=== PATIENT | male | born 1935 | race Caucasian/White ===

== ENCOUNTER 2019-04-07 20:59 | Inpatient (IN) | payer MEDICARE, OTHER ==
[2019-04-07] MEDS ORDERED: Sodium Chloride 0.9% 10 ML Syringe FLUSH PRN (21:03)
[2019-04-07] MEDS ORDERED: Sodium Chloride 0.9% 2.5 ML Syringe FLUSH PRN (21:03)
--- NOTE | 2019-04-07 21:21 | EDM.PDOC ---
ED HPI GENERAL MEDICAL PROBLEM - General Stated Complaint: PT CAN NOT TALK Time Seen by Provider: 04/07/19 21:01 - History of Present Illness INITIAL COMMENTS - FREE TEXT/NARRATIVE: HISTORY AND PHYSICAL: History of present illness: Patient is an 83-year-old male with a history of hypertension insulin requiring diabetes pulmonary issues for which he uses inhalers hypercholesterolemia dementia and a stroke affecting his right side one year ago who presents with with over 24 hours of increased confusion and generalized weakness and speech changes one hour ago. The says that since his stroke a year ago he has had confusion and weakness but she said that she thought it was worse last night starting at 6 PM. He was able to do his ADLs and had no complaints of headache chest pain fevers chills shortness of breath abdominal pain nausea or vomiting and he ate normally today. She says that approximately one hour ago she says that she could not understand what he was saying and he seemed even more confused. The patient has not had any falls recently and did not complain of any extremity pain. says that she did not notice any new focal weakness. As a result of the stroke 1 year ago says that he has had persistent right leg weakness more than other parts of his body along with the confusion. Patient follows with a provider in [place] and is currently on Coumadin therapy on a daily basis. Here in the ED when I ask him questions he is denying that he is having any pain and he is unsure of why he was brought here. Review of systems: As per history of present illness and below otherwise all systems reviewed and negative. Past medical history: As per history of present illness and as reviewed below otherwise noncontributory. Surgical history: As per history of present illness and as reviewed below otherwise noncontributory. Social history: No reported history of drug or alcohol abuse. Family history: As per history of present illness and as reviewed below otherwise noncontributory. Physical exam: General: Well-developed well-nourished thin man who is nontoxic and moving all extremities. He can adjust himself in the bed and sit up without assistance. Vital signs are noted by me HEENT: Atraumatic, normocephalic, pupils reactive, negative for conjunctival pallor or scleral icterus, mucous membranes moist, throat clear, neck supple, nontender, trachea midline. Lungs: Clear to auscultation but very diminished effort and poor effort on the patient's part and following my directions, there is no work of breathing wheezing or stridor, breath sounds equal bilaterally, chest nontender. Heart: S1S2, regular rate but irregular beats correlating with ectopy on the monitor are appreciated on my evaluation, there is an appreciable systolic ejection murmur at the left sternal border but no evidence of JVD Abdomen: Soft, nondistended, nontender. Negative for masses or hepatosplenomegaly. Negative for costovertebral tenderness. Pelvis: Stable nontender. Genitourinary: Deferred. Rectal: Deferred. Extremities: Atraumatic, negative for cords or calf pain. Neurovascular unremarkable. There is no pedal edema and patient is moving all extremities on command and spontaneously Neuro: Awake, alert, patient is oriented to his but not to place or time and is not answering those questions appropriately for me. He seems very flustered and confused about being here. He clearly exhibits anxiety and stress with questions and has difficulty focusing. He is moving all extremities and has strong upper extremity motor and grasps 5/5 but will not follow commands with lower extremities very well. When you initiate the movement the patient has 4/5 strength bilaterally in his legs and sensation is grossly intact. There is no facial droop on my evaluation and Cranial nerves II through XII unremarkable. Patient needed assistance to a wheelchair and into bed but says this is not new or different for him since last evening.. Exam nonfocal on my evaluation. He is slight increased tone in the lower extremities but patient does have good range of motion. Speech is not slurred or garbled but seemed thickened to me and slightly difficult to understand but he can answer questions. He seems more confused along with the mild dysarthria on my exam and has difficulty focusing on my questions and exam Diagnostics: CT scan of the head EKG CBC CMP troponin INR Accu-Chek TSH UA with reflex chest x-ray Therapeutics: IV O2 monitor aspirin Case was called as a stroke code and as a last known well time was 6 PM per the last evening and he is on Coumadin therapy I do not feel that he is a candidate for TPA. Admittedly his speech changes started 1 hour prior to coming here but seemed to be improving since arrival and again he is on Coumadin therapy After returning from CAT scan patient is speaking more clearly with only slight thickening does have delay and difficulty getting the words out and his speech does not appear slurred to me and says that this is improving. Now that he is less anxious and calm her he is able to focus more on questions and commands NIHSS=3 According to the his initial stroke 1 year ago occurred in [place] and she is unsure if the patient has had any follow-up CT scans at [facility] in [place] where he follows for regular care. I did briefly contact Dr. Darden in the ER at [facility] and he quickly looked in their computer and was unable to find any old head CTs for comparison. On reevaluation the patient has motor 5/5 throughout and has no drift of any of the extremities and he seems to be mentating well but he is having some dysarthria. 2155: Case was discussed with the neurologist at [facility] in [place], Dr. Booth. He said that at this point the patient's age and Coumadin use will preclude TPA and he agrees with my care plan. He suggested getting an MRI/MRA of the head and neck which we are unable to do but he says that he does not feel strongly that the patient needs to be transferred for that testing and light of the CT scan not correlating with the patient's dysarthria. He asked me to offer the patient CTA of the head and neck which I can perform here cautioning the and the patient that his kidney function is low with a GFR in the 30s. is also aware that if he goes for the MRI/MRA he will also receive contrast at [facility] but they do have nephrology there to address the kidney function. I have also offered the no more imaging intervention and just monitoring his symptoms and proceeding with more conservative nonaggressive management. She and patient are having a dialogue about their choices. Patient is alert he stated he would prefer to go home and not be admitted at either location. 5: Case was discussed with Dr. Rodriguez and he is aware of my lengthy discussion with the patient and and that their choice is to not he transferred to [facility] and to not have the CTA of the head and neck performed due to his low GFR. would like to see how the patient evolves and be more conservative and actually does not want transfer and would like to hold off to doing any testing tonight. She is aware that we can do the MRI and potentially the MRA on Tuesday here and if the patient continues to improve that may even not have to be performed pending his hospital course. Patient again says that he would prefer to go home but we will admit here to follow his symptoms and Dr. Rodriguez is agreeable. Impression: New dysarthria history of prior stroke, dementia; abnormal CT Head without correlation to symptoms; Coumadin therapy History of diabetes hypertension Definitive disposition and diagnosis as appropriate pending reevaluation and review of above. - Related Data Allergies Allergy/AdvReac Type Severity Reaction Status Date / Time No Known Allergies Allergy Verified 04/07/19 21:20 Home Meds: Home Meds Albuterol Sulfate [Proair Hfa] 1 puff INH ASDIRECTED PRN 04/07/19 [History] Albuterol/Ipratropium [DuoNeb 3.0-0.5 MG/3 ML] 1 puff INH ASDIRECTED PRN [History] Ascorbic Acid [Vitamin C] 0 mg PO DAILY 04/07/19 [History] Aspirin 1 tab PO DAILY 04/07/19 [History] Calcium Carbonate 2 tab PO DAILY 04/07/19 [History] Cholecalciferol (Vitamin D3) [Vitamin D3] 1 cap PO DAILY 04/07/19 [History] Escitalopram [Lexapro] 1 tab PO BEDTIME 04/07/19 [History] Furosemide [Lasix] 1 tab PO DAILY 04/07/19 [History] Insulin Isophane NPH, Human [NovoLIN N] 8 units SQ BID 04/07/19 [History] Lactobacillus Acidophilus [Acidophilus Probiotic] 0 mg PO DAILY 04/07/19 [ History] Lisinopril 1 tab PO DAILY 04/07/19 [History] Memantine HCl/Donepezil HCl [Namzaric 28 mg-10 mg Capsule] 1 tab PO DAILY [History] Metoprolol Succinate [Toprol XL] 1 tab PO DAILY 04/07/19 [History] Multivit-Min/FA/Lycopen/Lutein [Centrum Silver Men Tablet] 1 tab PO DAILY [History] Warfarin [Coumadin] 1 tab PO DAILY 04/07/19 [History] amLODIPine [Norvasc] 1 tab PO DAILY 04/07/19 [History] atorvaSTATin Calcium [Atorvastatin Calcium] 1 tab PO DAILY 04/07/19 [History] ED ROS GENERAL - Review of Systems Review Of Systems: ROS reveals no pertinent complaints other than HPI. ED EXAM, GENERAL - Physical Exam Exam: See Below (See dictation) Course - Vital Signs Last Recorded V/S: Last Vital Signs Temp 36.2 C 04/07/19 20:59 Pulse 66 04/07/19 22:00 Resp 17 04/07/19 22:00 BP 165/75 H 04/07/19 22:00 Pulse Ox 96 04/07/19 22:00 - Orders/Labs/Meds Orders: Active Orders 24 hr Category Date Time Status Blood Glucose Check, Bedside [RC] ONETIME Care 04/07/19 21:03 Active Cardiac Monitoring [RC] . DIRECTED Care 04/07/19 21:03 Active EKG Documentation Completion [RC] STAT Care 04/07/19 21:03 Active Oxygen Therapy, ED [RC] ASDIRECTED Care 04/07/19 21:03 Active Pulse Oximetry [RC] ASDIRECTED Care 04/07/19 21:03 Active UA RFX SUNDAR AND CULT IF INDIC [URIN] Stat Lab 04/07/19 21:03 Ordered Sodium Chloride 0.9% [Saline Flush] Med 04/07/19 21:03 Active 10 ml FLUSH ASDIRECTED PRN Sodium Chloride 0.9% [Saline Flush] Med 04/07/19 21:03 Active 2.5 ml FLUSH ASDIRECTED PRN Saline Lock Insert [OM.PC] Stat Oth 04/07/19 21:03 Ordered Medication Orders Sodium Chloride (Saline Flush) 10 ml FLUSH ASDIRECTED PRN PRN Reason: Keep Vein Open Sodium Chloride (Saline Flush) 2.5 ml FLUSH ASDIRECTED PRN PRN Reason: Keep Vein Open Labs: Laboratory Tests 04/07/19 04/07/19 04/07/19 Range/Units 21:35 21:35 21:35 WBC 9.53 (4.0-11.0) K/uL RBC 4.20 L (4.50-5.90) M/uL Hgb 12.1 L (13.0-17.0) g/dL Hct 37.4 L (38.0-50.0) % MCV 89.0 (80.0-98.0) fL MCH 28.8 (27.0-32.0) pg MCHC 32.4 (31.0-37.0) g/dL RDW Std Deviation 47.0 (28.0-62.0) fl RDW Coeff of Marge 15 (11.0-15.0) % Plt Count 183 (150-400) K/uL MPV 11.80 (7.40-12.00) fL Neut % (Auto) 72.5 (48.0-80.0) % Lymph % (Auto) 14.5 L (16.0-40.0) % [place] % (Auto) 12.0 (0.0-15.0) % Eos % (Auto) 0.6 (0.0-7.0) % Baso % (Auto) 0.4 (0.0-1.5) % Neut # (Auto) 6.9 H (1.4-5.7) K/uL Lymph # (Auto) 1.4 (0.6-2.4) K/uL [place] # (Auto) 1.1 H (0.0-0.8) K/uL Eos # (Auto) 0.1 (0.0-0.7) K/uL Baso # (Auto) 0.0 (0.0-0.1) K/uL Nucleated RBC % 0.0 /100WBC Nucleated RBCs # 0 K/uL INR 2.03 Sodium 142 (136-148) mmol/L Potassium 4.3 (3.5-5.1) mmol/L Chloride 107 (98-107) mmol/L Carbon Dioxide 28.7 (21.0-32.0) mmol/L BUN 29 H (7.0-18.0) mg/dL Creatinine 1.7 H (0.8-1.3) mg/dL Est Cr Clr Drug Dosing TNP Estimated GFR (MDRD) 38.8 ml/min Glucose 112 H (74-106) mg/dL Calcium 9.1 (8.5-10.1) mg/dL Total Bilirubin 1.0 (0.2-1.0) mg/dL AST 19 (15-37) IU/L ALT 15 (14-63) IU/L Alkaline Phosphatase 58 (46-116) U/L Troponin I < 0.050 (0.000-0.056) ng/mL Total Protein 6.1 L (6.4-8.2) g/dL Albumin 2.8 L (3.4-5.0) g/dL Globulin 3.3 (2.6-4.0) g/dL Albumin/Globulin Ratio 0.9 (0.9-1.6) TSH 3rd Generation 3.60 (0.36-3.74) uIU/mL Meds: Medications Generic Name Dose Route Start Last Admin Trade Name Freq PRN Reason Stop Dose Admin Sodium Chloride 10 ml 04/07/19 21:03 Saline Flush FLUSH ASDIRECTED PRN Keep Vein Open Sodium Chloride 2.5 ml 04/07/19 21:03 Saline Flush FLUSH ASDIRECTED PRN Keep Vein Open Discontinued Medications Generic Name Dose Route Start Last Admin Trade Name Freq PRN Reason Stop Dose Admin Aspirin 325 mg 04/07/19 22:51 Aspirin PO 04/07/19 22:52 ONETIME ONE Departure - Departure Time of Disposition: 22:57 Disposition: Refer to Observation Condition: Good Clinical Impression: Dysarthria - Discharge Information Referrals: Efrem Evans MD [Primary Care Provider] - - My Orders Last 24 Hours: My Active Orders 04/07/19 21:03 Blood Glucose Check, Bedside [RC] ONETIME Cardiac Monitoring [RC] . DIRECTED EKG Documentation Completion [RC] STAT Oxygen Therapy, ED [RC] ASDIRECTED Pulse Oximetry [RC] ASDIRECTED UA RFX SUNDAR AND CULT IF INDIC [URIN] Stat Sodium Chloride 0.9% [Saline Flush] 10 ml FLUSH ASDIRECTED PRN Sodium Chloride 0.9% [Saline Flush] 2.5 ml FLUSH ASDIRECTED PRN Saline Lock Insert [OM.PC] Stat - Assessment/Plan Last 24 Hours: My Active Orders 04/07/19 21:03 Blood Glucose Check, Bedside [RC] ONETIME Cardiac Monitoring [RC] . DIRECTED EKG Documentation Completion [RC] STAT Oxygen Therapy, ED [RC] ASDIRECTED Pulse Oximetry [RC] ASDIRECTED UA RFX SUNDAR AND CULT IF INDIC [URIN] Stat Sodium Chloride 0.9% [Saline Flush] 10 ml FLUSH ASDIRECTED PRN Sodium Chloride 0.9% [Saline Flush] 2.5 ml FLUSH ASDIRECTED PRN Saline Lock Insert [OM.PC] Stat
--- NOTE | 2019-04-07 21:35 | CR ---
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 The heart silhouette is normal in size and morphology. Lung: Mild left basal atelectasis and small left pleural effusion noted. No pneumothorax is identified. Bone and Soft tissue: Removed, healed left-sided rib fractures seen. IMPRESSION: 1. Mild left basal atelectasis and small left pleural effusion noted. Dictated by Jair Tay MD @ 04/07/2019 9:34:31 PM Dictated by: Jair Tay MD @ 04/07/2019 21:34:35 (Electronically Signed)
--- NOTE | 2019-04-07 21:41 | CT ---
INDICATION: Confusion, dysarthria. Nonfocal exam. Previous history of a stroke 1 year ago. COMPARISON: None available. TECHNIQUE: CT examination of the head was performed with 3 mm thick axial sections without intravenous contrast. Images were obtained from the vertex of the skull through the skull base, and I examined the images with the brain and bone windows. Please note that all CT scans at this facility use dose modulation, iterative reconstruction, and/or weight-based dosing when appropriate to reduce radiation dose to as low as reasonably achievable. FINDINGS: : There is focal calcification located in the central portion of an M2 branch of the right MCA in the anterior inferior right sylvian cistern, suggesting a calcified embolus. There is no sign of increased density throughout the other portions of the right MCA. There is moderate encephalomalacia in the medial left high parietal lobe extending from the periventricular region to the cortex, consistent with an old distal left GARCY infarct. 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 There is mild hypodensity in the right posterior parietal cortex and subcortical white matter adjacent to the posterior horn of the right lateral ventricle, consistent with an old or possibly subacute distal right posterior MCA infarct. There is mild hypodensity in the high right posterior parietal subcortical white matter with a small punctate calcification adjacent to it, consistent with an old distal right posterior MCA infarct. There is moderate dilatation of the ventricles and sulci representing mom moderate, age-appropriate atrophy. The visualized portions of the orbits are normal in appearance. The visualized portions of the paranasal sinuses and mastoids are clear. The osseous structures are normal in their appearance with no sign of abnormality in the skull base or calvarium. The findings were discussed with Dr. Martínez at 21 30 hours on 04/07/2019. IMPRESSION: Punctate calcification located in the medial aspect of an M2 branch of the right MCA in the anterior sylvian cistern, worrisome for calcified thrombus. Old left high distal GRACY infarct with punctate calcification anterior to the area of encephalomalacia. Old right high posterior parietal distal MCA infarction with small calcification located adjacent to the area of encephalomalacia. Area of hypodensity in the posterior right occipital lobe adjacent to the occipital horn of the right lateral ventricle could be old or possibly subacute distal right posterior MCA infarction. Moderate, age-appropriate atrophy. Please note that all CT scans at this facility use dose modulation, iterative reconstruction, and/or weight-based dosing when appropriate to reduce radiation dose to as low as reasonably achievable. Dictated by Rudolph Rankin MD @ Apr 07 2019 9:24PM Signed by Dr. Rudolph Rankin @ Apr 07 2019 9:39PM
[2019-04-07 21:53] LABS: BLOOD UREA NITROGEN,BUN 29 mg/dL (7.0-18.0); CARBON DIOXIDE,CO2 28.7 mmol/L (21.0-32.0); CHLORIDE,CL 107 mmol/L (98-107); GLUCOSE RANDOM 112 mg/dL (74-106); POTASSIUM,K 4.3 mmol/L (3.5-5.1); SODIUM,NA 142 mmol/L (136-148)
[2019-04-07] MEDS ORDERED: Aspirin 325 MG Tab PO ONE (22:51)
[2019-04-08] MEDS ORDERED: Sodium Chloride 0.9% 2.5 ML Syringe FLUSH PRN (00:59)
[2019-04-08] MEDS: Insulin Aspart 100 Units/ML 3 ML Pen SUBCUT SCH ×3 (07:42→18:03)
[2019-04-08] MEDS ORDERED: Ondansetron 4 MG/2 ML SDV IVPUSH PRN (09:37)
[2019-04-08] MEDS ORDERED: Acetaminophen 325 MG Tab PO PRN (09:37)
[2019-04-08] MEDS ORDERED: Albuterol 8 GM Inhaler INH PRN (09:39)
--- NOTE | 2019-04-08 09:41 | PCM.HP.2 ---
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 reports that yesterday he was having trouble walking but that resolved by the afternoon. They were on their way to [facility] and he suddenly started talking gibberish so she brought him into the ER. When speaking to the patient this morning, he states "I had a strike" and he denies any pain. Otherwise, he can't tell me the specifics of what happened or participate in the interview in a meaningful way. The reports that he wasn't complaining of any chest pain, shortness of breath, belly pain, nausea, vomiting, diarrhea, fever at home. In the ER workup included labs that showed no white count, slight anemia, INR within normal limits, Electrolytes within normal limits, BUN/creatinine elevated negative troponin, and TSH within normal limits. UA showed positive ketones, protein and trace leuk esterase. Chest x-ray showed mild atelectasis and small left-sided pleural effusion. CT of the head showed punctate calcification in the medial aspect of the M2 branch of the right MCA, worrisome for calcified thrombus, old left high distal GRACY infarct with punctate calcification, old right high posterior parietal distal MCA infarct, area of hypodensity in the posterior right occipital lobe adjacent to the occipital horn of the right lateral ventricle could be old or possibly subacute distal right posterior MCA infarction as well as age-appropriate atrophy. In the ER, it was deemed that he was not a candidate for TPA due to his Coumadin therapy. ER provider did speak to the neurologist validation scientist, Dr. Booth, in [place]. Per ER note, the neurologist recommended CTA of head and neck.. It was explained to the family that a CTA may worsen the patient's kidney function and we do not have a fare register repairer here on staff. The family declined transfer to [place] at that time. When speaking to the this morning, she does not want transfer to [place], but would like an MRI done. We explained the MRI wouldn't be able to be done until tomorrow and was fine with that. - Related Data Allergies/Adverse Reactions: Allergies Allergy/AdvReac Type Severity Reaction Status Date / Time No Known Allergies Allergy Verified 04/07/19 23:35 Home Medications: Home Meds Albuterol Sulfate [Proair Hfa] 1 puff INH Q4HR PRN 04/07/19 [History] Albuterol/Ipratropium [DuoNeb 3.0-0.5 MG/3 ML] 1 puff INH ASDIRECTED PRN [History] Ascorbic Acid [Vitamin C] 0 mg PO DAILY 04/07/19 [History] Aspirin 1 tab PO DAILY 04/07/19 [History] Calcium Carbonate 2 tab PO DAILY 04/07/19 [History] Cholecalciferol (Vitamin D3) [Vitamin D3] 1 cap PO DAILY 04/07/19 [History] Escitalopram [Lexapro] 1 tab PO BEDTIME 04/07/19 [History] Furosemide [Lasix] 1 tab PO DAILY 04/07/19 [History] Insulin Isophane NPH, Human [NovoLIN N] 8 units SQ BID 04/07/19 [History] Lactobacillus Acidophilus [Acidophilus Probiotic] 1 tab PO DAILY 04/07/19 [ History] Lisinopril 1 tab PO DAILY 04/07/19 [History] Memantine HCl/Donepezil HCl [Namzaric 28 mg-10 mg Capsule] 1 tab PO DAILY [History] Metoprolol Succinate [Toprol XL] 1 tab PO DAILY 04/07/19 [History] Multivit-Min/FA/Lycopen/Lutein [Centrum Silver Men Tablet] 1 tab PO DAILY [History] Warfarin [Coumadin] 1 tab PO DAILY 04/07/19 [History] atorvaSTATin Calcium [Atorvastatin Calcium] 1 tab PO DAILY 04/07/19 [History] Past Medical History HEENT History: Reports: Hard of Hearing, Impaired Vision, Other (See Below) Other HEENT History: wears glasses Cardiovascular History: Reports: High Cholesterol, Hypertension, Other (See Below) Other Cardiovascular History: Stroke a year ago in october Respiratory History: Reports: COPD Genitourinary History: Reports: None Neurological History: Reports: CVA, Other (See Below) Other Neuro History: dementia Endocrine/Metabolic History: Reports: Diabetes, Type II - Past Surgical History Cardiovascular Surgical History: Reports: Coronary Artery Bypass, Other (See Below) Other Cardiovascular Surgeries/Procedures: Open heart surgery 10 years with 5 bypasses GI Surgical History: Reports: Colonoscopy Social & Family History - Family History Family Medical History: Noncontributory - Tobacco Use Smoking Status *Q: Current Every Day Smoker Years of Tobacco use: 35 Packs/Tins Daily: 1 Used Tobacco, but Quit: Yes Month/Year Tobacco Last Used: 1989 - Caffeine Use Caffeine Use: Reports: Coffee, Soda Caffeine Use Comment: 1 cup a day, 6 diet cokes a day - Alcohol Use Days Per Week of Alcohol Use: 7 Number of Drinks Per Day: 1 Total Drinks Per Week: 7 Date of Last Drink: 04/07/19 Time of Last Drink: 19:00 - Recreational Drug Use Recreational Drug Use: No H&P Review of Systems - Review of Systems: Review Of Systems: See Below Free Text/Narrative: Patient declines any problems but appears on confused General: Reports: No Symptoms HEENT: Reports: No Symptoms Pulmonary: Reports: No Symptoms Cardiovascular: Reports: No Symptoms Gastrointestinal: Reports: No Symptoms Genitourinary: Reports: No Symptoms Musculoskeletal: Reports: No Symptoms Skin: Reports: No Symptoms Psychiatric: Reports: No Symptoms Neurological: Reports: Confusion Hematologic/Lymphatic: Reports: No Symptoms Immunologic: Reports: No Symptoms Exam - Exam Exam: See Below - Vital Signs Vital Signs: Last Vital Signs Temp 98.5 F 04/08/19 07:42 Pulse 60 04/08/19 07:42 Resp 18 04/08/19 07:42 BP 182/75 H 04/08/19 07:42 Pulse Ox 94 L 04/08/19 07:42 Weight: 62.051 kg - Exam General: Alert. No: Oriented Lungs: Clear to Auscultation, Normal Respiratory Effort Cardiovascular: Regular Rate, Regular Rhythm GI/Abdominal Exam: Normal Bowel Sounds, Soft, Non-Tender, No Distention Extremities: No Pedal Edema Skin: Warm, Dry Neuro Extensive - Motor, Sensory, Reflexes: Other (strength 4/5 on right, 5/5 on left, follows some directions, speech difficult to understand which states is not normal ) - Patient Data Lab Results Last 24 hrs: Laboratory Results - last 24 hr 04/07/19 04/07/19 04/07/19 Range/Units 21:35 21:35 21:35 WBC 9.53 (4.0-11.0) K/uL RBC 4.20 L (4.50-5.90) M/uL Hgb 12.1 L (13.0-17.0) g/dL Hct 37.4 L (38.0-50.0) % MCV 89.0 (80.0-98.0) fL MCH 28.8 (27.0-32.0) pg MCHC 32.4 (31.0-37.0) g/dL RDW Std Deviation 47.0 (28.0-62.0) fl RDW Coeff of Marge 15 (11.0-15.0) % Plt Count 183 (150-400) K/uL MPV 11.80 (7.40-12.00) fL Neut % (Auto) 72.5 (48.0-80.0) % Lymph % (Auto) 14.5 L (16.0-40.0) % [place] % (Auto) 12.0 (0.0-15.0) % Eos % (Auto) 0.6 (0.0-7.0) % Baso % (Auto) 0.4 (0.0-1.5) % Neut # (Auto) 6.9 H (1.4-5.7) K/uL Lymph # (Auto) 1.4 (0.6-2.4) K/uL [place] # (Auto) 1.1 H (0.0-0.8) K/uL Eos # (Auto) 0.1 (0.0-0.7) K/uL Baso # (Auto) 0.0 (0.0-0.1) K/uL Nucleated RBC % 0.0 /100WBC Nucleated RBCs # 0 K/uL INR 2.03 Sodium 142 (136-148) mmol/L Potassium 4.3 (3.5-5.1) mmol/L Chloride 107 (98-107) mmol/L Carbon Dioxide 28.7 (21.0-32.0) mmol/L BUN 29 H (7.0-18.0) mg/dL Creatinine 1.7 H (0.8-1.3) mg/dL Est Cr Clr Drug Dosing TNP Estimated GFR (MDRD) 38.8 ml/min Glucose 112 H (74-106) mg/dL POC Glucose (60-110) mg/dL Calcium 9.1 (8.5-10.1) mg/dL Total Bilirubin 1.0 (0.2-1.0) mg/dL AST 19 (15-37) IU/L ALT 15 (14-63) IU/L Alkaline Phosphatase 58 (46-116) U/L Troponin I < 0.050 (0.000-0.056) ng/mL Total Protein 6.1 L (6.4-8.2) g/dL Albumin 2.8 L (3.4-5.0) g/dL Globulin 3.3 (2.6-4.0) g/dL Albumin/Globulin Ratio 0.9 (0.9-1.6) TSH 3rd Generation 3.60 (0.36-3.74) uIU/mL Urine Color Urine Appearance Urine pH (5.0-8.0) Ur Specific [place] (1.001-1.035) Urine Protein (NEGATIVE) mg/dL Urine Glucose (UA) (NEGATIVE) mg/dL Urine Ketones (NEGATIVE) mg/dL Urine Occult Blood (NEGATIVE) Urine Nitrite (NEGATIVE) Urine Bilirubin (NEGATIVE) Urine Urobilinogen (<2.0) EU/dL Ur Leukocyte Esterase (NEGATIVE) Urine RBC (0-2/HPF) Urine WBC (0-5/HPF) Ur Epithelial Cells (NONE-FEW) Amorphous Sediment (NEGATIVE) Urine Bacteria (NEGATIVE) 04/07/19 04/08/19 Range/Units 22:50 06:23 WBC (4.0-11.0) K/uL RBC (4.50-5.90) M/uL Hgb (13.0-17.0) g/dL Hct (38.0-50.0) % MCV (80.0-98.0) fL MCH (27.0-32.0) pg MCHC (31.0-37.0) g/dL RDW Std Deviation (28.0-62.0) fl RDW Coeff of Marge (11.0-15.0) % Plt Count (150-400) K/uL MPV (7.40-12.00) fL Neut % (Auto) (48.0-80.0) % Lymph % (Auto) (16.0-40.0) % [place] % (Auto) (0.0-15.0) % Eos % (Auto) (0.0-7.0) % Baso % (Auto) (0.0-1.5) % Neut # (Auto) (1.4-5.7) K/uL Lymph # (Auto) (0.6-2.4) K/uL [place] # (Auto) (0.0-0.8) K/uL Eos # (Auto) (0.0-0.7) K/uL Baso # (Auto) (0.0-0.1) K/uL Nucleated RBC % /100WBC Nucleated RBCs # K/uL INR Sodium (136-148) mmol/L Potassium (3.5-5.1) mmol/L Chloride (98-107) mmol/L Carbon Dioxide (21.0-32.0) mmol/L BUN (7.0-18.0) mg/dL Creatinine (0.8-1.3) mg/dL Est Cr Clr Drug Dosing Estimated GFR (MDRD) ml/min Glucose (74-106) mg/dL POC Glucose 126 H (60-110) mg/dL Calcium (8.5-10.1) mg/dL Total Bilirubin (0.2-1.0) mg/dL AST (15-37) IU/L ALT (14-63) IU/L Alkaline Phosphatase (46-116) U/L Troponin I (0.000-0.056) ng/mL Total Protein (6.4-8.2) g/dL Albumin (3.4-5.0) g/dL Globulin (2.6-4.0) g/dL Albumin/Globulin Ratio (0.9-1.6) TSH 3rd Generation (0.36-3.74) uIU/mL Urine Color YELLOW Urine Appearance SLT CLOUDY Urine pH 6.0 (5.0-8.0) Ur Specific [place] 1.025 (1.001-1.035) Urine Protein 100 H (NEGATIVE) mg/dL Urine Glucose (UA) NEGATIVE (NEGATIVE) mg/dL Urine Ketones 15 H (NEGATIVE) mg/dL Urine Occult Blood NEGATIVE (NEGATIVE) Urine Nitrite NEGATIVE (NEGATIVE) Urine Bilirubin NEGATIVE (NEGATIVE) Urine Urobilinogen 0.2 (<2.0) EU/dL Ur Leukocyte Esterase TRACE H (NEGATIVE) Urine RBC 0-2 (0-2/HPF) Urine WBC 1-3 (0-5/HPF) Ur Epithelial Cells OCCASIONAL (NONE-FEW) Amorphous Sediment LIGHT (NEGATIVE) Urine Bacteria RARE (NEGATIVE) Result Diagrams: 04/07/19 21:35 04/07/19 21:35 Problem List Initiated/Reviewed/Updated: Yes Orders Last 24hrs: Active Orders 24 hr Category Date Time Status Patient Status [ADT] Stat ADT 04/07/19 22:58 Active Blood Glucose Check, Bedside [RC] TIDAC Care 04/08/19 06:00 Active Cardiac Monitoring [RC] Q8H Care 04/07/19 21:03 Active EKG Documentation Completion [RC] STAT Care 04/07/19 21:03 Active Intake and Output [RC] ASDIRECTED Care 04/08/19 09:37 Ordered Neuro Check [RC] Q2HR Care 04/08/19 02:00 Active Pulse Oximetry [RC] ASDIRECTED Care 04/07/19 21:03 Active Telemetry Monitoring [Cardiac Monitoring] [RC] . Care 04/07/19 23:20 Active DIRECTED Vital Signs [RC] PER UNIT ROUTINE Care 04/08/19 09:37 Ordered OT Evaluation and Treatment [CONS] Routine Cons 04/08/19 09:37 Ordered PT Evaluation and Treatment [CONS] Routine Cons 04/08/19 09:37 Ordered OPERATIONS [employer] Evaluation and Treatment [CONS] Routine Cons 04/08/19 09:37 Ordered ADA Diabetic [[place] [employer] Diet] [DIET Diet 04/08/19 Breakfast Active ] CULTURE URINE [RM] Stat Lab 04/07/19 22:50 Received Acetaminophen [Tylenol] Med 04/08/19 09:37 Ordered 650 mg PO Q4H PRN Albuterol [Proventil HFA] Med 04/08/19 09:39 Ordered 1 puff INH Q4HR PRN Aspirin Med 04/08/19 09:45 Ordered 81 mg PO DAILY Escitalopram [Lexapro] Med 04/08/19 21:00 Ordered 10 mg PO BEDTIME Insulin Aspart [NovoLOG] Med 04/08/19 07:30 Active See Protocol SUBCUT TIDAC Lisinopril Med 04/08/19 09:45 Ordered 1 tab PO DAILY Ondansetron [Zofran] Med 04/08/19 09:37 Ordered 4 mg IVPUSH Q4H PRN Sodium Chloride 0.9% @ 100 MLS/HR(1,000ml) Med 04/08/19 09:45 Ordered Sodium Chloride 0.9% [Normal Saline] 1,000 ml IV ASDIRECTED Sodium Chloride 0.9% [Saline Flush] Med 04/07/19 21:03 Active 10 ml FLUSH ASDIRECTED PRN Sodium Chloride 0.9% [Saline Flush] Med 04/07/19 21:03 Active 2.5 ml FLUSH ASDIRECTED PRN Sodium Chloride 0.9% [Saline Flush] Med 04/08/19 00:59 Active 2.5 ml FLUSH ASDIRECTED PRN Warfarin [Coumadin] Med 04/08/19 09:45 Ordered 2.5 mg PO DAILY atorvaSTATin Calcium [Atorvastatin Calcium] Med 04/08/19 09:45 Ordered 1 tab PO DAILY Saline Lock Insert [OM.PC] Stat Oth 04/07/19 21:03 Ordered Medication Orders Acetaminophen (Tylenol) 650 mg PO Q4H PRN PRN Reason: Pain/Fever Albuterol (Proventil Hfa) gm INH Q4HR PRN PRN Reason: Dyspnea Aspirin (Aspirin) 81 mg PO DAILY [facility] Escitalopram Oxalate (Lexapro) 10 mg PO BEDTIME [facility] Sodium Chloride (Normal Saline) 1,000 mls @ 100 mls/hr IV ASDIRECTED [facility] Insulin Aspart (Novolog) 0 unit SUBCUT TIDAC [facility]; Protocol Last Admin: 04/08/19 07:42 Dose: Not Given Non-Formulary Medication (Atorvastatin Calcium [Atorvastatin Calcium]) 1 tab PO DAILY [facility] Non-Formulary Medication (Lisinopril) 1 tab PO DAILY [facility] Ondansetron HCl (Zofran) 4 mg IVPUSH Q4H PRN PRN Reason: Nausea/Vomiting Sodium Chloride (Saline Flush) 10 ml FLUSH ASDIRECTED PRN PRN Reason: Keep Vein Open Sodium Chloride (Saline Flush) 2.5 ml FLUSH ASDIRECTED PRN PRN Reason: Keep Vein Open Sodium Chloride (Saline Flush) 2.5 ml FLUSH ASDIRECTED PRN PRN Reason: IV Use Warfarin Sodium (Coumadin) 2.5 mg PO DAILY [facility] Assessment/Plan Comment:: 1. Admit to inpatient 2. Code status -DNR/DNI 3. Vitals per routine 4. I/Os per routine 5. Diet- heart healthy 6. DVT prophylaxis- on Coumadin 7. Change in speech and right sided weakness concerning for CVA-will order PT/OT /ST. Will order MRI brain for Tuesday, if improvement in kidney function could get with contrast as well as MRA of head/neck without. Continue neuro checks. Will hold BP meds for permissive HTN. Continue Coumadin. Monitor on telemetry 8. DMII- will place on sliding scale and accuchecks 9. PMH HTN and dementia- hold BP meds for permissive HTN
[2019-04-08] MEDS: Sodium Chloride 0.9% 1,000 ML IV SCH ×2 (10:14→21:01)
[2019-04-08] MEDS: Aspirin 81 MG Tab.Chew PO SCH (10:15)
[2019-04-08] MEDS: atorvaSTATin 40 MG Tab PO SCH (10:15)
[2019-04-08] MEDS: Warfarin 2.5 MG Tab PO SCH (13:31)
[2019-04-08] MEDS ORDERED: Magnesium Sulfate/Water 4 GM in Premix Bag 1 BAG IV ONE (18:46)
[2019-04-08] MEDS: Escitalopram 10 MG Tab PO SCH (20:55)
[2019-04-09] MEDS: Sodium Chloride 0.9% 1,000 ML IV SCH (06:18)
[2019-04-09 06:43] LABS: CARBON DIOXIDE,CO2 27.8 mmol/L (21.0-32.0); POTASSIUM,K 4.3 mmol/L (3.5-5.1)
[2019-04-09] MEDS: Insulin Aspart 100 Units/ML 3 ML Pen SUBCUT SCH ×3 (07:40→18:05)
[2019-04-09] MEDS: atorvaSTATin 40 MG Tab PO SCH (08:24)
[2019-04-09] MEDS: Aspirin 81 MG Tab.Chew PO SCH (08:24)
--- NOTE | 2019-04-09 10:00 | PCM.PN ---
- General Info Date of Service: 04/09/19 - Review of Systems Systems Review Comment:: feeling better, strength improving - Patient Data Vitals - Most Recent: Last Vital Signs Temp 35.9 C 04/09/19 08:00 Pulse 58 L 04/09/19 08:00 Resp 16 04/09/19 08:00 BP 170/63 H 04/09/19 08:24 Pulse Ox 94 L 04/09/19 08:00 Weight - Most Recent: 62.051 kg I&O - Last 24 Hours: Intake & Output 04/08/19 04/09/19 04/09/19 22:59 06:59 14:59 Intake Total 1397 740 Output Total 425 350 Balance 972 390 Lab Results Last 24 Hours: Laboratory Results - last 24 hr 04/07/19 04/08/19 04/08/19 Range/Units 21:10 12:04 16:37 WBC (4.0-11.0) K/uL RBC (4.50-5.90) M/uL Hgb (13.0-17.0) g/dL Hct (38.0-50.0) % MCV (80.0-98.0) fL MCH (27.0-32.0) pg MCHC (31.0-37.0) g/dL RDW Std Deviation (28.0-62.0) fl RDW Coeff of Marge (11.0-15.0) % Plt Count (150-400) K/uL MPV (7.40-12.00) fL Neut % (Auto) (48.0-80.0) % Lymph % (Auto) (16.0-40.0) % [place] % (Auto) (0.0-15.0) % Eos % (Auto) (0.0-7.0) % Baso % (Auto) (0.0-1.5) % Neut # (Auto) (1.4-5.7) K/uL Lymph # (Auto) (0.6-2.4) K/uL [place] # (Auto) (0.0-0.8) K/uL Eos # (Auto) (0.0-0.7) K/uL Baso # (Auto) (0.0-0.1) K/uL Nucleated RBC % /100WBC Nucleated RBCs # K/uL INR Sodium (136-148) mmol/L Potassium (3.5-5.1) mmol/L Chloride (98-107) mmol/L Carbon Dioxide (21.0-32.0) mmol/L BUN (7.0-18.0) mg/dL Creatinine (0.8-1.3) mg/dL Est Cr Clr Drug Dosing mL/min Estimated GFR (MDRD) ml/min Glucose (74-106) mg/dL POC Glucose 235 H 263 H (60-110) mg/dL Calcium (8.5-10.1) mg/dL Magnesium 1.4 L (1.8-2.4) mg/dL 04/09/19 04/09/19 04/09/19 Range/Units 06:15 06:15 06:15 WBC 6.85 (4.0-11.0) K/uL RBC 4.02 L (4.50-5.90) M/uL Hgb 11.5 L (13.0-17.0) g/dL Hct 35.6 L (38.0-50.0) % MCV 88.6 (80.0-98.0) fL MCH 28.6 (27.0-32.0) pg MCHC 32.3 (31.0-37.0) g/dL RDW Std Deviation 46.4 (28.0-62.0) fl RDW Coeff of Marge 14 (11.0-15.0) % Plt Count 149 L (150-400) K/uL MPV 11.60 (7.40-12.00) fL Neut % (Auto) 64.5 (48.0-80.0) % Lymph % (Auto) 19.9 (16.0-40.0) % [place] % (Auto) 12.7 (0.0-15.0) % Eos % (Auto) 1.9 (0.0-7.0) % Baso % (Auto) 1.0 (0.0-1.5) % Neut # (Auto) 4.4 (1.4-5.7) K/uL Lymph # (Auto) 1.4 (0.6-2.4) K/uL [place] # (Auto) 0.9 H (0.0-0.8) K/uL Eos # (Auto) 0.1 (0.0-0.7) K/uL Baso # (Auto) 0.1 (0.0-0.1) K/uL Nucleated RBC % 0.0 /100WBC Nucleated RBCs # 0 K/uL INR 1.61 Sodium 141 (136-148) mmol/L Potassium 4.3 (3.5-5.1) mmol/L Chloride 107 (98-107) mmol/L Carbon Dioxide 27.8 (21.0-32.0) mmol/L BUN 25 H (7.0-18.0) mg/dL Creatinine 1.4 H (0.8-1.3) mg/dL Est Cr Clr Drug Dosing 35.70 mL/min Estimated GFR (MDRD) 48.5 ml/min Glucose 135 H (74-106) mg/dL POC Glucose (60-110) mg/dL Calcium 8.1 L (8.5-10.1) mg/dL Magnesium 1.9 (1.8-2.4) mg/dL Med Orders - Current: Current Medications Acetaminophen (Tylenol) 650 mg PO Q4H PRN PRN Reason: Pain/Fever Albuterol (Ventolin Hfa) 0 gm INH Q4H PRN PRN Reason: Dyspnea Aspirin (Aspirin) 81 mg PO DAILY [facility] Last Admin: 04/09/19 08:24 Dose: 81 mg Atorvastatin Calcium (Lipitor) 80 mg PO DAILY [facility] Last Admin: 04/09/19 08:24 Dose: 80 mg Escitalopram Oxalate (Lexapro) 10 mg PO BEDTIME [facility] Last Admin: 04/08/19 20:55 Dose: 10 mg Insulin Aspart (Novolog) 0 unit SUBCUT TIDAC [facility]; Protocol Last Admin: 04/09/19 07:40 Dose: Not Given Lisinopril (Prinivil) 20 mg PO DAILY [facility] Last Admin: 04/09/19 08:24 Dose: 20 mg Ondansetron HCl (Zofran) 4 mg IVPUSH Q4H PRN PRN Reason: Nausea/Vomiting Sodium Chloride (Saline Flush) 10 ml FLUSH ASDIRECTED PRN PRN Reason: Keep Vein Open Sodium Chloride (Saline Flush) 2.5 ml FLUSH ASDIRECTED PRN PRN Reason: Keep Vein Open Sodium Chloride (Saline Flush) 2.5 ml FLUSH ASDIRECTED PRN PRN Reason: IV Use Warfarin Sodium (Coumadin) 2.5 mg PO DAILY@1400 [facility] Last Admin: 04/08/19 13:31 Dose: 2.5 mg Discontinued Medications Aspirin (Aspirin) 325 mg PO ONETIME ONE Stop: 04/07/19 22:52 Last Admin: 04/07/19 23:02 Dose: 325 mg Sodium Chloride (Normal Saline) 1,000 mls @ 100 mls/hr IV ASDIRECTED [facility] Last Admin: 04/09/19 06:18 Dose: 100 mls/hr Magnesium Sulfate 4 gm/ Premix 100 mls @ 25 mls/hr IV ONETIME ONE Stop: 04/08/19 22:45 Last Admin: 04/08/19 18:59 Dose: 25 mls/hr - Exam General: Alert, Cooperative Lungs: Clear to Auscultation, Normal Respiratory Effort Cardiovascular: Regular Rate, Regular Rhythm Extremities: Non-Tender, No Pedal Edema Skin: Warm, Dry, Intact Neurological: No New Focal Deficit - Problem List Review Problem List Initiated/Reviewed/Updated: Yes - Plan Plan:: 88 yo male who presented with concerns fo CVA with slurred speech and right sided weakness. Patient and family declined transfer which was offered due to finding on CT scan of head. Plan is for MRI of brain. We are holding BP medication for permissive HTN. Continue Coumadin and telemetry.
[2019-04-09] MEDS: Warfarin 2.5 MG Tab PO SCH (14:07)
--- NOTE | 2019-04-09 15:08 | MR ---
INDICATION: 83-year-old male. Evaluate for CVA. TECHNIQUE: Sagittal T1 axial FLAIR T2 and diffusion weighted images of the brain. [id number] magnetic resonance atrophy of the [place] arteries. [id number] magnetic resonance angiography of the carotid artery was not able history. COMPARISON: CT brain on 04/07/2019. FINDINGS: MRI brain: Motion artifact degrades quality of the study. No areas of diffusion restriction to suggest acute infarction are seen at this time. Focal areas of encephalomalacia due to chronic infarction are noted within the parasagittal left anterior parietal posterior frontal lobes (distal left anterior cerebral artery territory) cyst. Small chronic cortical based infarction is in the bilateral frontal lobe particular region and in the deep right parietal lobe white matter and another in the right occipital lobe. These findings correspond to abnormalities described on recent CT scan and are stable. No evidence of intracranial hemorrhage. No mass effect or midline shift. Orbits sella ago the wrong report. MRA [place]: Diffuse atherosclerotic irregularity of the intracranial segments of both internal carotid arteries this is more prominent on the left than the right there is moderate stenosis in the cavernous segments of the left ICA. The basilar artery is widely patent. The horizontal segments of the anterior middle and posterior cerebral arteries are shown to be patent there is occlusion of the distal left vertebral artery. The distal right M2 branches are reduced in number compared to the left side possibly due to a chronic distal branch occlusion. MRA carotid arteries and vertebral arteries: Image quality is reduced due to patient motion artifact. Bilateral common carotid arteries internal and external carotid arteries are patent there is less than 50 percent stenosis of the proximal bilateral internal carotid arteries. The dominant right vertebral artery appears widely patent feeding the basilar artery. 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 Impression : 1. No evidence of acute ischemic infarction intracranial hemorrhage or mass. 2. Multiple areas of chronic infarction encephalomalacia and gliosis are noted in the parasagittal left frontoparietal vertex with smaller areas of chronic cortical infarction in both frontal lobes and right parietal lobe and right occipital lobe. These findings correlate with those on recent CT scan and appear stable. 3. No evidence of intracranial hemorrhage or mass effect. Cerebral and cerebellar atrophy. 4. MRA images of the neck are limited in quality due to patient motion artifact. 5. 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 Wide patency of the dominant right vertebral artery. 6. Less than 50 percent stenosis proximal bilateral internal carotid arteries. Moderate stenosis in the cavernous segment (intracranial) left internal carotid artery. 7. No evidence of acute occlusion of the proximal cerebral arteries. Dictated by Darryl Renteria MD @ 04/09/2019 3:05:18 PM Dictated by: Darryl Renteria MD @ 04/09/2019 15:07:10 (Electronically Signed)
--- NOTE | 2019-04-09 15:09 | MR ---
MR angiogram of brain Technique: [id number] MR angiogram study was obtained centered to the point [place]. Multiple MIPS images were obtained. Limitations: Motion artifact is seen which causes multiple levels of stenosis on the MIPS images which are most likely artifact. Findings: Distal internal carotid arteries and basilar artery are patent. Middle cerebral arteries as well as anterior cerebral arteries are patent. Posterior cerebral arteries are patent. On the source images I do not see any definite areas of stenosis. No gross aneurysm is seen although smaller aneurysms could be easily missed on this exam. Impression: Less than optimal exam due to motion. Within this limitation, no definite areas of stenosis are seen. Diagnostic code #2 [id number]
[2019-04-09] MEDS: Escitalopram 10 MG Tab PO SCH (20:50)
[2019-04-10] MEDS: Insulin Aspart 100 Units/ML 3 ML Pen SUBCUT SCH ×3 (08:42→17:45)
[2019-04-10] MEDS: Aspirin 81 MG Tab.Chew PO SCH (08:45)
[2019-04-10] MEDS: atorvaSTATin 40 MG Tab PO SCH (08:45)
--- NOTE | 2019-04-10 11:34 | PCM.DCSUM1 ---
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 Initial workup included labs that showed no white count, slight anemia, INR within normal limits, Electrolytes within normal limits, negative troponin, and TSH within normal limits. Chest x-ray showed mild atelectasis and small left-sided pleural effusion. CT of the head showed punctate calcification in the medial aspect of the M2 branch of the right MCA, worrisome for calcified thrombus, old left high distal GRACY infarct with punctate calcification, old right high posterior parietal distal MCA infarct, area of hypodensity in the posterior right occipital lobe adjacent to the occipital horn of the right lateral ventricle could be old or possibly subacute distal right posterior MCA infarction as well as age-appropriate atrophy. In the ER, it was deemed that he was not a candidate for TPA due to his Coumadin therapy and age. He was admitted and monitored on telemetry. MRI of brain reported no evidence of acute infarction or acute artery occlusion. Physical therapy was consulted and recommended continued outpatient therapy. Patient was discharged home and a referral for PT in [place] was made. is in agreement of plan. - Discharge Plan Home Medications: Home Meds Albuterol Sulfate [Proair Hfa] 1 puff INH Q4HR PRN 04/07/19 [History] Albuterol/Ipratropium [DuoNeb 3.0-0.5 MG/3 ML] 1 puff INH ASDIRECTED PRN [History] Ascorbic Acid [Vitamin C] 0 mg PO DAILY 04/07/19 [History] Aspirin 1 tab PO DAILY 04/07/19 [History] Calcium Carbonate 2 tab PO DAILY 04/07/19 [History] Cholecalciferol (Vitamin D3) [Vitamin D3] 1 cap PO DAILY 04/07/19 [History] Escitalopram [Lexapro] 1 tab PO BEDTIME 04/07/19 [History] Furosemide [Lasix] 1 tab PO DAILY 04/07/19 [History] Insulin Isophane NPH, Human [NovoLIN N] 8 units SQ BID 04/07/19 [History] Lactobacillus Acidophilus [Acidophilus Probiotic] 1 tab PO DAILY 04/07/19 [ History] Lisinopril 1 tab PO DAILY 04/07/19 [History] Memantine HCl/Donepezil HCl [Namzaric 28 mg-10 mg Capsule] 1 tab PO DAILY [History] Metoprolol Succinate [Toprol XL] 1 tab PO DAILY 04/07/19 [History] Multivit-Min/FA/Lycopen/Lutein [Centrum Silver Men Tablet] 1 tab PO DAILY [History] Warfarin [Coumadin] 1 tab PO DAILY 04/07/19 [History] atorvaSTATin Calcium [Atorvastatin Calcium] 1 tab PO DAILY 04/07/19 [History] Patient Handouts: Weakness, [id number] Referrals: Efrem Evans MD [Primary Care Provider] - 04/18/19 12:15 pm - Discharge Summary/Plan Comment DC Time >30 min.: No - Patient Data Vitals - Most Recent: Last Vital Signs Temp 36.2 C 04/10/19 07:00 Pulse 67 04/10/19 07:00 Resp 16 04/10/19 07:00 BP 165/68 H 04/10/19 08:43 Pulse Ox 95 04/10/19 07:00 Weight - Most Recent: 62.641 kg I&O - Last 24 hours: Intake & Output 04/09/19 04/10/19 04/10/19 22:59 06:59 14:59 Intake Total 440 200 Balance 440 200 Lab Results - Last 24 hrs: Laboratory Results - last 24 hr 04/09/19 04/09/19 04/10/19 Range/Units 11:21 17:32 06:29 POC Glucose 179 H 251 H 167 H (60-110) mg/dL SUNDAR Results - Last 24 hrs: Microbiology 04/07/19 22:50 Urine Culture - Final Urine, Catheterized MIXED PATTIE 1,000-10,000 CFU/ML Med Orders - Current: Current Medications Acetaminophen (Tylenol) 650 mg PO Q4H PRN PRN Reason: Pain/Fever Albuterol (Ventolin Hfa) 0 gm INH Q4H PRN PRN Reason: Dyspnea Aspirin (Aspirin) 81 mg PO DAILY [facility] Last Admin: 04/10/19 08:45 Dose: 81 mg Atorvastatin Calcium (Lipitor) 80 mg PO DAILY [facility] Last Admin: 04/10/19 08:45 Dose: 80 mg Escitalopram Oxalate (Lexapro) 10 mg PO BEDTIME [facility] Last Admin: 04/09/19 20:50 Dose: 10 mg Insulin Aspart (Novolog) 0 unit SUBCUT TIDAC [facility]; Protocol Last Admin: 04/10/19 08:42 Dose: 2 unit Lisinopril (Prinivil) 20 mg PO DAILY [facility] Last Admin: 04/10/19 08:43 Dose: 20 mg Ondansetron HCl (Zofran) 4 mg IVPUSH Q4H PRN PRN Reason: Nausea/Vomiting Sodium Chloride (Saline Flush) 10 ml FLUSH ASDIRECTED PRN PRN Reason: Keep Vein Open Sodium Chloride (Saline Flush) 2.5 ml FLUSH ASDIRECTED PRN PRN Reason: Keep Vein Open Sodium Chloride (Saline Flush) 2.5 ml FLUSH ASDIRECTED PRN PRN Reason: IV Use Warfarin Sodium (Coumadin) 2.5 mg PO DAILY@1400 [facility] Last Admin: 04/09/19 14:07 Dose: 2.5 mg Discontinued Medications Aspirin (Aspirin) 325 mg PO ONETIME ONE Stop: 04/07/19 22:52 Last Admin: 04/07/19 23:02 Dose: 325 mg Sodium Chloride (Normal Saline) 1,000 mls @ 100 mls/hr IV ASDIRECTED [facility] Last Admin: 04/09/19 06:18 Dose: 100 mls/hr Magnesium Sulfate 4 gm/ Premix 100 mls @ 25 mls/hr IV ONETIME ONE Stop: 04/08/19 22:45 Last Admin: 04/08/19 18:59 Dose: 25 mls/hr
--- NOTE | 2019-04-10 15:00 | PCM.PN ---
- General Info Date of Service: 04/10/19 - Review of Systems Systems Review Comment:: patient reports some unsteadiness in gait, family is concerned about taking him home. - Patient Data Vitals - Most Recent: Last Vital Signs Temp 36.9 C 04/10/19 11:00 Pulse 78 04/10/19 11:00 Resp 18 04/10/19 11:00 BP 171/83 H 04/10/19 11:00 Pulse Ox 95 04/10/19 11:00 Weight - Most Recent: 62.641 kg I&O - Last 24 Hours: Intake & Output 04/09/19 04/10/19 04/10/19 22:59 06:59 14:59 Intake Total 440 200 Balance 440 200 Lab Results Last 24 Hours: Laboratory Results - last 24 hr 04/09/19 04/10/19 04/10/19 Range/Units 17:32 06:29 11:33 POC Glucose 251 H 167 H 223 H (60-110) mg/dL [facility] Results Last 24 Hours: Microbiology 04/07/19 22:50 Urine Culture - Final Urine, Catheterized MIXED PATTIE 1,000-10,000 CFU/ML Med Orders - Current: Current Medications Acetaminophen (Tylenol) 650 mg PO Q4H PRN PRN Reason: Pain/Fever Albuterol (Ventolin Hfa) 0 gm INH Q4H PRN PRN Reason: Dyspnea Aspirin (Aspirin) 81 mg PO DAILY [facility] Last Admin: 04/10/19 08:45 Dose: 81 mg Atorvastatin Calcium (Lipitor) 80 mg PO DAILY [facility] Last Admin: 04/10/19 08:45 Dose: 80 mg Escitalopram Oxalate (Lexapro) 10 mg PO BEDTIME [facility] Last Admin: 04/09/19 20:50 Dose: 10 mg Insulin Aspart (Novolog) 0 unit SUBCUT TIDAC [facility]; Protocol Last Admin: 04/10/19 12:07 Dose: 4 unit Lisinopril (Prinivil) 20 mg PO DAILY [facility] Last Admin: 04/10/19 08:43 Dose: 20 mg Ondansetron HCl (Zofran) 4 mg IVPUSH Q4H PRN PRN Reason: Nausea/Vomiting Sodium Chloride (Saline Flush) 10 ml FLUSH ASDIRECTED PRN PRN Reason: Keep Vein Open Sodium Chloride (Saline Flush) 2.5 ml FLUSH ASDIRECTED PRN PRN Reason: Keep Vein Open Sodium Chloride (Saline Flush) 2.5 ml FLUSH ASDIRECTED PRN PRN Reason: IV Use Warfarin Sodium (Coumadin) 2.5 mg PO DAILY@1400 [facility] Last Admin: 04/09/19 14:07 Dose: 2.5 mg Discontinued Medications Aspirin (Aspirin) 325 mg PO ONETIME ONE Stop: 04/07/19 22:52 Last Admin: 04/07/19 23:02 Dose: 325 mg Sodium Chloride (Normal Saline) 1,000 mls @ 100 mls/hr IV ASDIRECTED [facility] Last Admin: 04/09/19 06:18 Dose: 100 mls/hr Magnesium Sulfate 4 gm/ Premix 100 mls @ 25 mls/hr IV ONETIME ONE Stop: 04/08/19 22:45 Last Admin: 04/08/19 18:59 Dose: 25 mls/hr - Exam General: Alert, Oriented HEENT: Mucous Membr. Moist/[place] Lungs: Clear to Auscultation, Normal Respiratory Effort Cardiovascular: Regular Rate, Regular Rhythm GI/Abdominal Exam: Soft, Non-Tender Extremities: Non-Tender, No Pedal Edema Skin: Warm, Dry, Intact Neurological: No New Focal Deficit - Problem List Review Problem List Initiated/Reviewed/Updated: Yes - My Orders Last 24 Hours: My Active Orders 04/10/19 11:38 Ready for Discharge [RC] PER UNIT ROUTINE - Plan Plan:: 88 yo male who presenting with concerns fo CVA with slurred speech and right sided weakness. Symptoms have improved. Family was initially agreeable for discharge home today but this afternoon they expressed concerns about discharge and do not feel they can take care of him at home. I called [facility] and they stated they would have a bed available tomorrow for him.
[2019-04-10] MEDS: Warfarin 2.5 MG Tab PO SCH (18:13)
[2019-04-10] MEDS: Escitalopram 10 MG Tab PO SCH (20:29)
[2019-04-11] MEDS: Insulin Aspart 100 Units/ML 3 ML Pen SUBCUT SCH (07:14)
[2019-04-11] MEDS: atorvaSTATin 40 MG Tab PO SCH (08:15)
[2019-04-11] MEDS: Aspirin 81 MG Tab.Chew PO SCH (08:16)
== END 2019-04-11 09:45 | disposition other institution (70) | DRG 57 ==
LOC: MW.ED 20:59 → MW.MS 22:58 → OBSVTOIN 04-08 11:01
PROVIDERS: ADMIT Internal Medicine; ATTEND Internal Medicine
DX: I69.351 Hemiplegia and hemiparesis following cerebral infarction affecting right dominant side (principal); R41.0 Disorientation, unspecified; R53.1 Weakness; I10 Essential (primary) hypertension; E11.9 Type 2 diabetes mellitus without complications; F03.90 Unspecified dementia, unspecified severity, without behavioral disturbance, psychotic disturbance, mood disturbance, and anxiety; Z66 Do not resuscitate; H91.90 Unspecified hearing loss, unspecified ear; H54.7 Unspecified visual loss; E78.00 Pure hypercholesterolemia, unspecified; J44.9 Chronic obstructive pulmonary disease, unspecified; F17.210 Nicotine dependence, cigarettes, uncomplicated; Z79.4 Long term (current) use of insulin; Z95.1 Presence of aortocoronary bypass graft; Z87.891 Personal history of nicotine dependence; Z79.82 Long term (current) use of aspirin; Z79.01 Long term (current) use of anticoagulants; Z79.899 Other long term (current) drug therapy
CPT/HCPCS: 36415; 70450; 71045; 80053; 81001; 82962; 83735; 84443; 84484; 85025; 85610; 87086; 99285; A9270 ×4; G0378 ×2; J7040; 70544; 70544-26; 70547; 70547-26; 70551; 70551-26; 80048; 92610-GN; 93005; 97110-GP; 97116-GP; 97161-GP; 97530-GP; J1815-GY; J3475